=== PATIENT | male | born 1955 | race Caucasian/White ===

== ENCOUNTER 2016-06-27 18:25 | Emergency (ER) | payer OTHER ==
[~2016-06-27] VITALS: Ht 193 cm; Wt 99.0 kg
[2016-06-27 18:28] VITALS: BP 139/92; PULSE 70; RESP 16; TEMP 97.9; O2SAT 97
[2016-06-27] MEDS ORDERED: TRAM50TA PO (18:51)
[2016-06-27] MEDS ORDERED: TIZA4CAP3 PO (18:51)
[2016-06-27] MEDS ORDERED: IBUP800T23 PO (18:51)
--- NOTE | 2016-06-27 19:19 | PD ---
HPI Chief Complaint: Back/ Neck Pain or Injury Time Seen by Provider: 19:11 Travel History International Travel<30 days: No Contact w/Intl Traveler<30days: No Traveled to known affect area: No History of Present Illness HPI 60-year-old male presents to the emergency room for evaluation of thoracic back strain/spasm for the past week. Patient states he initially injured his back at work while lifting a heavy box. States pain was tolerable with ibuprofen for the first few days but after spending several hours in the car on a roadtrip , his pain returned and worsened. It is worse with range of motion, lying back , and taking deep breaths. He went to an urgent care center yesterday due to increased pain and was diagnosed with back strain. He was given prescriptions for tramadol, tizanidine, and ibuprofen. States they haven't been significantly improving his symptoms. He was supposed to return to work today but was unable to perform his duties of lifting because of pain so they sent him here to make a claim. PFSH Past Medical History Influenza Vaccination: No Social History Alcohol Use: Yes (OCCAS) Tobacco Use: Yes (CIGARS) Substance Use: No Allergies-Medications (Allergen,Severity, Reaction): Coded Allergies: No Known Allergies (Unverified , 06/27/16) Reported Meds & Prescriptions Reported Meds & Active Scripts Active Reported Tizanidine (Tizanidine HCl) 4 Mg Cap 4 Mg PO TID PRN Tramadol (Tramadol HCl) 50 Mg Tab 50 Mg PO Q8H PRN Ibuprofen 800 Mg Tab 800 Mg PO Q8H PRN Review of Systems Except as stated in HPI: all other systems reviewed are Neg Physical Exam Narrative GENERAL: Well-nourished, well-developed male in no acute distress. Afebrile. Ambulatory. SKIN: Warm and dry. HEAD: Normocephalic. EYES: No scleral icterus. No injection or drainage. NECK: Supple, trachea midline. No JVD or lymphadenopathy. BACK: No CVA tenderness. No rash. No point tenderness on palpation of the spine. Tenderness to palpation of the right paraspinous musculature T5. Data Data Last Documented VS Vital Signs Date Time Temp Pulse Resp B/P Pulse Ox O2 Delivery O2 Flow Rate FiO2 06/27/16 18:28 97.9 70 16 139/92 97 MDM Medical Decision Making Medical Screen Exam Complete: Yes Emergency Medical Condition: Yes Medical Record Reviewed: Yes Differential Diagnosis Spasm versus strain versus fracture Narrative Course 60-year-old male presents to the emergency room for a evaluation of right sided back strain for the past week after lifting a heavy box while at work. States sharp, stabbing pain developed during a heavy lift it has persisted since then. Patient states he tried to go back to work today but was unable to perform his tasks of lifting so they recommended he come to the emergency room to make a claim. He went to an urgent care center yesterday and was prescribed ibuprofen, Zanaflex, and tramadol which significantly improved his symptoms. There is no midline tenderness of the spine. There is tenderness to palpation of the right paraspinous musculature. Patient given work release and told to follow-up with the Worker's Compensation physician or return for worsening symptoms. He understands and agrees to plan. Diagnosis Primary Impression: Thoracic back sprain Qualified Code: S23.9XXA - Thoracic back sprain, initial encounter Referrals: Primary Care Physician Patient Instructions: General Instructions, Thoracic Back Strain (ED) Additional Instructions: Rest and drink plenty of fluids. Take prescribed medications as directed, as needed for pain. Apply ice to the affected area for 20 minutes at a time, as needed for pain and swelling. Follow-up with a primary care physician. Return to the emergency room for worsening symptoms. Disposition: 01 DISCHARGE HOME Condition: Stable Maci Reyna Jun 27, 2016 19:19
== END 2016-06-27 19:29 | disposition home or self-care (01) ==
LOC: PHEFT 18:25
DX: S23.3XXA Sprain of ligaments of thoracic spine, initial encounter (principal); Z72.0 Tobacco use; X50.0XXA Overexertion from strenuous movement or load, initial encounter; Y93.89 Activity, other specified; Y92.512 Supermarket, store or market as the place of occurrence of the external cause; Y99.0 Civilian activity done for income or pay
CPT/HCPCS: 99283